=== PATIENT | female | born 1975 | race Two or more races ===

== ENCOUNTER 2018-03-06 18:51 | Emergency (ER) | payer SELFPAY ==
[~2018-03-06] VITALS: Ht 165.1 cm; Wt 70.0 kg
[2018-03-06 18:53] VITALS: BP 130/98
[2018-03-06] MEDS ORDERED: ATEN-42 PO (18:56)
== END 2018-03-06 23:40 | disposition left against medical advice (07) ==
LOC: ER 18:51
DX: Z53.21 Procedure and treatment not carried out due to patient leaving prior to being seen by health care provider (principal)